=== PATIENT | male | born 1960 | race Two or more races ===

== ENCOUNTER 2019-01-20 05:36 | Inpatient (IN) | payer OTHER ==
[2019-01-20] VITALS (8 sets, daily range): BP systolic 122–151; BP diastolic 67–93
[~2019-01-20] VITALS: Ht 177.8 cm; Wt 113.4 kg
[2019-01-20] MEDS ORDERED: SCOPOLAMINE HBR 1 EA PATCH.TD72 TD ONE (06:13)
[2019-01-20] MEDS ORDERED: FENTANYL PF 100MCG/2ML AMPUL ONE ×2 (06:13→12:10)
[2019-01-20] MEDS ORDERED: MIDAZOLAM HCL 2 MG/2ML VIAL ONE (06:14)
[2019-01-20] MEDS ORDERED: MORPHINE SULFATE/PF 10 MG/10ML (1MG/ML) AMPUL ONE (06:14)
--- NOTE | 2019-01-20 07:00 | NUR ---
MS RN NOTE: RECEIVE PATIENT FROM HOME FOR DAY SURGERY OF LEFT TOTAL KNEE ARTHROPLASTY. CONSENTS SIGNED AND CHECKLIST COMPLETED. TRIED TO START IV X2 WITHOUT SUCCESS. BED LOCKED AND IN LOWEST POSITION, CALL LIGHT IN REACH. WILL ENDORSE TO DAY NURSE TO CONTINUE WITH PLAN OF CARE.
[2019-01-20] MEDS ORDERED: TAMS-12 PO (07:37)
[2019-01-20] MEDS ORDERED: ATOR10TA PO (07:37)
[2019-01-20] MEDS ORDERED: FINA5TAB4 PO (07:37)
[2019-01-20] MEDS ORDERED: GARL10004 PO (07:37)
[2019-01-20] MEDS ORDERED: TERA10CA4 PO (07:37)
--- NOTE | 2019-01-20 08:00 | NUR ---
RN OPENING NOTES PT AWAKE AND RESTING IN BED. INFORMED OR OF MULTIPLE IV ATTEMPTS. PT SCHEDULED FOR LEFT TOTAL KNEE ARTHROPLASTY BY DR MACK. SAFETY PRECAUTIONS IN PLACE, BED IN LOWEST LOCKED POSITION, X2 SIDE RAILS UP AND CALL LIGHT WITHIN REACH. WILL CONTINUE TO MONITOR.
[2019-01-20] MEDS ORDERED: GARLIC 1000 MG PO SCH (09:00)
--- NOTE | 2019-01-20 09:00 | NUR ---
RN NOTES PATIENT TAKEN BY BED TO SURGERY 0900.
[2019-01-20] MEDS ORDERED: BUPIVACAINE 0.5 % PF 150 MG/30 ML VIAL ONE (09:53)
[2019-01-20] MEDS ORDERED: BACITRACIN 50000 UNITS/VIAL ONE (09:53)
[2019-01-20] MEDS ORDERED: TRANEXAMIC ACID 3,000 MG in SODIUM CHLORIDE IRRIG SOLUTION 70 ML IR ONE (10:00)
[2019-01-20] MEDS ORDERED: HYDROMORPHONE INJ 2 MG/ML DISP.SYRIN ONE (11:31)
[2019-01-20] MEDS ORDERED: MORPHINE SULFATE INJ 4 MG/ML DISP.SYRIN ONE (11:58)
[2019-01-20] MEDS ORDERED: HYDROMORPHONE 1 MG/1 ML DISP.SYRIN ONE (12:20)
--- NOTE | 2019-01-20 12:30 | NUR ---
RN NOTES PATIENT BACK FROM SX, PT ON 4L O2 VIA NASAL CANNULA FOR SLEEP APNEA. VITAL SIGNS STABLE.
[2019-01-20] MEDS ORDERED: diphenhydrAMINE HCL 25 MG CAPSULE PO PRN (13:00)
[2019-01-20] MEDS ORDERED: IV D5/0.45 NACL 1,000 ML IV PRN (13:00)
[2019-01-20] MEDS ORDERED: oxyCODONE IR immediate release 5 MG PO PRN (13:00)
[2019-01-20] MEDS ORDERED: ZOLPIDEM TARTRATE 5 MG TABLET PO PRN (13:00)
[2019-01-20] MEDS ORDERED: CLONIDINE HCL 0.1 MG TABLET PO PRN (13:00)
[2019-01-20] MEDS ORDERED: MENTHOL MM PRN (13:00)
[2019-01-20] MEDS ORDERED: ONDANSETRON HCL/PF 4 MG/2 ML VIAL IVP PRN (13:00)
[2019-01-20] MEDS ORDERED: BISACODYL SUPP (10 MG) 10 MG/SUPP.RECT SUPP.RECT RC PRN (13:00)
[2019-01-20] MEDS ORDERED: NALOXONE HCL 0.4 MG/ML AMPUL IV PRN (13:00)
[2019-01-20] MEDS ORDERED: PHENOL MM PRN (13:00)
[2019-01-20] MEDS ORDERED: MORPHINE SULFATE INJ 2 MG/ML DISP.SYRIN IV PRN (13:00)
[2019-01-20] MEDS: FINASTERIDE (5 MG) 5 MG TABLET PO SCH (13:53)
[2019-01-20] MEDS: TAMSULOSIN 0.4 MG CAP.SR.24H PO SCH (13:53)
--- NOTE | 2019-01-20 14:00 | NUR ---
RN NOTES PT REFUSED PT EVALUATION TODAY.
[2019-01-20] MEDS: oxyCODONE IR immediate release 5 MG PO PRN ×3 (16:25→22:22)
[2019-01-20] MEDS: ANCEF 1 GM/50 ML D5W IV SCH ×2 (17:48)
[2019-01-20] MEDS: ATORVASTATIN 10 MG TABLET PO SCH (17:49)
[2019-01-20] MEDS: DOCUSATE SODIUM 100 MG CAPSULE PO SCH (17:49)
--- NOTE | 2019-01-20 18:47 | NUR ---
RN CLOSING NOTES PT AWAKE AND RESTING IN BED. PATIENT SAYS PAIN IS MANAGED BEST WITH OXY IR 10. PT HAS LEFT WRIST #22 IV INTACT AND RUNNING D51/2NS @125 ML/HR. PER POST OP ORDER DRESSING WILL ONLY BE CHANGED BY MD. SAFETY PRECAUTIONS IN PLACE, BED IN LOWEST LOCKED POSITION, X2 SIDE RAILS UP AND CALL LIGHT WITHIN REACH. WILL ENDORSE TO BELT MAKER HELPER NURSE FOR CONTINUITY OF CARE.
--- NOTE | 2019-01-20 19:40 | NUR ---
MS RN NOTE: PATIENT RESTING IN BED, NO ACUTE DISTRESS NOTED. BREATHING EVEN AND UNLABORED, NO SOB NOTED. IV TO LEFT WRIST IN PLACE, INFUSING D5 1/2NS AT 125ML/HR. DRESSING TO LEFT LEG IN PLACE, NO BLEEDING NOTED. BED LOCKED AND IN LOWEST POSITION, CALL LIGHT IN REACH. WILL CONTINUE TO MONITOR.
[2019-01-20] MEDS: TERAZOSIN HCL 5 MG CAPSULE PO SCH (21:19)
[2019-01-20] MEDS: FAMOTIDINE (20 MG) 20 MG TABLET PO SCH (21:19)
--- NOTE | 2019-01-20 22:30 | NUR ---
MS RN NOTE: PATIENT COMPLAINS OF PAIN TO LEFT KNEE, OXY IR 10MG ORAL GIVEN PER MD ORDER. WILL CONTINUE TO MONITOR.
--- NOTE | 2019-01-20 23:45 | NUR ---
MS RN NOTE: PATIENT SEEN BY DR. BLANCO FOR PAIN MANAGEMENT. MEDICATIONS ADJUSTED PER MD. WILL CONTINUE TO MONITOR.
[2019-01-21] MEDS: ANCEF 1 GM/50 ML D5W IV SCH ×2 (01:46)
[2019-01-21] MEDS: oxyCODONE IR immediate release 5 MG PO PRN ×6 (01:46→21:15)
--- NOTE | 2019-01-21 01:50 | NUR ---
MS RN NOTE: PATIENT COMPLAINS OF PAIN TO LEFT KNEE, OXY IR 10MG ORAL GIVEN PER MD ORDER. WILL CONTINUE TO MONITOR.
--- NOTE | 2019-01-21 06:05 | NUR ---
MS RN NOTE: PATIENT RESTING IN BED, NO ACUTE DISTRESS NOTED. BREATHING EVEN AND UNLABORED, NO SOB NOTED. IV TO LEFT WRIST IN PLACE. DRESSING TO LEFT LEG IN PLACE, NO BLEEDING NOTED. BED LOCKED AND IN LOWEST POSITION, CALL LIGHT IN REACH. WILL ENDORSE TO DAY NURSE TO CONTINUE WITH PLAN OF CARE.
[2019-01-21 06:07] LABS: BASOPHILS % (AUTO) 0.3 % (0.0-2.0); EOSINOPHILS % (AUTO) 0.2 % (0.0-6.0); HEMATOCRIT 44 % (39-51); HEMOGLOBIN 15.2 g/dL (13.5-17.5); LYMPHOCYTES # (AUTO) 0.7 /CMM (0.8-4.8); LYMPHOCYTES % (AUTO) 11.3 % (20.0-44.0); MEAN CORPUSCULAR HGB CONC 34 g/dl (31.0-36.0); MEAN CORPUSCULAR VOLUME 90 fL (80-96); MONOCYTES # (AUTO) 0.5 /CMM (0.1-1.30); MONOCYTES % (AUTO) 7.9 % (2.0-12.0); NEUTROPHILS % (AUTO) 80.3 % (43.0-81.0); PLATELET COUNT (AUTO) 52 /CMM (150-450); RED BLOOD CELL COUNT(AUTO) 4.94 MIL/uL (4.5-6.0); WHITE BLOOD COUNT (AUTO) 6.3 K/uL (4.3-11.0)
[2019-01-21 08:00] VITALS: BP 135/78
--- NOTE | 2019-01-21 08:00 | NUR ---
MS RN NOTE: PATIENT RESTING IN BED, NO ACUTE DISTRESS NOTED. BREATHING EVEN AND UNLABORED, NO SOB NOTED. IV H/L TO LEFT WRIST IN PLACE, S/P LT KNE TOTAL ARTHROPLASTY WITH DRESSING TO LEFT LEG IN PLACE CLEAN AND INTACT, NO BLEEDING NOTED. BED LOCKED AND IN LOWEST POSITION, CALL LIGHT IN REACH. WILL CONTINUE TO MONITOR.
[2019-01-21 08:01] LABS: LYMPHOCYTES % (MANUAL) 12 % (16-48); MONOCYTES % (MANUAL) 7 % (0-11.0); NEUTROPHILS % (MANUAL) 81 (42-76)
[2019-01-21] MEDS: ASPIRIN 325 MG TABLET PO SCH ×2 (08:41→16:35)
[2019-01-21] MEDS: DOCUSATE SODIUM 100 MG CAPSULE PO SCH ×2 (08:42→16:35)
[2019-01-21] MEDS: FINASTERIDE (5 MG) 5 MG TABLET PO SCH (08:42)
[2019-01-21] MEDS: FAMOTIDINE (20 MG) 20 MG TABLET PO SCH (08:42)
[2019-01-21] MEDS: TAMSULOSIN 0.4 MG CAP.SR.24H PO SCH (08:42)
[2019-01-21] MEDS: MORPHINE SULFATE INJ 2 MG/ML DISP.SYRIN IM/SC PRN (10:53)
--- NOTE | 2019-01-21 14:00 | NUR ---
PT REFUSED P.T. TX WANTING TO REST FOR AWHILE INSPITE OF EXPLAINING ITS RISKS AND BENEFITS.PAIN MGT GIVEN PRN ORDERED.HAS BEEN HESITANT TO USE MORPHINE IM. WILL TRY TOMORROW.
[2019-01-21 15:59] VITALS: BP 113/72
[2019-01-21] MEDS: ATORVASTATIN 10 MG TABLET PO SCH (17:10)
--- NOTE | 2019-01-21 18:00 | NUR ---
PT RESTING IN BED DENYING ANY PAIN OR DISTRESS.C/O CONSTIPATION.MOM GIVEN AND ENCOURAGED TO INCREASE FLUID INTAKE AND AMBULATE WITH P.T.CALL LIGHT PLACED WITHIN REACH.
[2019-01-21] MEDS: MAGNESIUM HYDROXIDE 30 ML UDC PO PRN (18:50)
--- NOTE | 2019-01-21 19:25 | NUR ---
MS/RN OPENING NOTES PT RECEIVED AWAKE, A/OX4. DAUGHTER AT BEDSIDE. ON ROOM AIR, BREATHING EVEN AND UNLABORED, IN NO ACUTE RESPIRATORY DISTRESS. DENIES SOB AT THIS TIME. WITH C/O PAIN TO LEFT KNEE 09/30 BUT WANTS TO HOLD OFF ON PAIN MEDS AT THIS TIME. C/O ABDOMINAL DISCOMFORT AND FEELS CONSTIPATED. ALREADY RECEIVED MILK OF MAG HOWEVER STATES HE HASNT HAD A BM FOR A FEW DAYS AND WOULD LIKE SOMETHING ELSE. WILL ADMINISTER [place] ORDERED. IV TO LEFT WRIST PATENT AND INTACT. HOB ELEVATED. BED IN LOW/LOCKED POSITION WITH CALL LIGHT IN REACH. BILAT. UPPER SIDE RAILS IN PLACE. LEFT LEG WRAPPED IN SIVAKUMAR BANDAGE AND SECURED. WILL CONTINUE TO MONITOR
[2019-01-21 20:00] VITALS: BP 136/77
[2019-01-21] MEDS: SENNOSIDES 8.6 MG TABLET PO PRN (20:34)
[2019-01-21] MEDS: TERAZOSIN HCL 5 MG CAPSULE PO SCH (21:14)
--- NOTE | 2019-01-21 21:20 | NUR ---
MS/RN NOTES PT C/O PAIN TO LEFT KNEE 09/30. ADMINISTERED PRN OXY IR 10MG ORDERED PER PAIN SCALE. WILL MONITOR FOR EFFECTIVENESS
[2019-01-22] MEDS: oxyCODONE IR immediate release 5 MG PO PRN ×4 (02:08→22:43)
--- NOTE | 2019-01-22 02:11 | NUR ---
MS/RN NOTES PT C/O PAIN 6/10 TO LEFT KNEE. ADMINISTERED PRN OXY IR 10MG ORDERED. WILL MONITOR FOR EFFECTIVENESS
--- NOTE | 2019-01-22 06:34 | NUR ---
MS/RN CLOSING NOTES PT ASLEEP, RESPONSIVE TO NAME. A/OX3. ON ROOM AIR, BREATHING EVEN AND UNLABORED. DENIES SOB. RECENTLY RECEIVED PAIN MEDS. ENCOURAGED INCENTIVE SPIROMETER USE WHILE AWAKE. IV TO LEFT WRIST PATENT AND INTACT. DRESSING TO LLE C/D/I. NO NEEDS EXPRESSED AT THIS TIME. BED IN LOW/LOCKED POSITION WITH CALL LIGHT IN REACH. BILAT. UPPER SIDE RAILS IN PLACE. HOB ELEVATED. WILL ENDORSE TO DAY SHIFT RN JENELLE.
[2019-01-22 07:05] LABS: BASOPHILS % (AUTO) 0.5 % (0.0-2.0); EOSINOPHILS % (AUTO) 0.6 % (0.0-6.0); HEMATOCRIT 43 % (39-51); HEMOGLOBIN 14.5 g/dL (13.5-17.5); LYMPHOCYTES # (AUTO) 0.6 /CMM (0.8-4.8); MEAN CORPUSCULAR HGB CONC 34 g/dl (31.0-36.0); MEAN CORPUSCULAR VOLUME 90 fL (80-96); MONOCYTES # (AUTO) 0.6 /CMM (0.1-1.30); MONOCYTES % (AUTO) 11.3 % (2.0-12.0); NEUTROPHILS # (AUTO) 4.2 /CMM (1.8-8.9); NEUTROPHILS % (AUTO) 76.6 % (43.0-81.0); RED BLOOD CELL COUNT(AUTO) 4.72 MIL/uL (4.5-6.0); WHITE BLOOD COUNT (AUTO) 5.5 K/uL (4.3-11.0)
[2019-01-22 07:47] LABS: PLATELET COUNT (AUTO) 44 /CMM (150-450)
[2019-01-22 08:00] VITALS: BP 132/82
--- NOTE | 2019-01-22 08:00 | NUR ---
MS RN NOTE: PATIENT RESTING IN BED, NO ACUTE DISTRESS NOTED. BREATHING EVEN AND UNLABORED, NO SOB NOTED. IV H/L TO LEFT WRIST IN PLACE, S/P LT KNEE TOTAL ARTHROPLASTY WITH DRESSING TO LEFT LEG IN PLACE CLEAN AND INTACT, NO BLEEDING NOTED. PAIN MGT GIVEN NEEDED.ENCOURAGED TO AMBULATE WITH P.T. THIS MORNING TO RESOLVE HIS CONSTIPATION ISSUE WELL.BED LOCKED AND IN LOWEST POSITION, CALL LIGHT WITHIN REACH. WILL CONTINUE TO MONITOR.
[2019-01-22 08:05] LABS: CALCIUM, SERUM 8.7 mg/dL (8.5-10.1); CREATININE 0.9 mg/dL (0.6-1.3); POTASSIUM 4.2 mmol/L (3.5-5.1)
[2019-01-22 08:18] LABS: BAND % (MANUAL) 2 % (0.0-5.0); EOSINOPHILS % (MANUAL) 1 % (0-4); LYMPHOCYTES % (MANUAL) 15 % (16-48); MONOCYTES % (MANUAL) 10 % (0-11.0); NEUTROPHILS % (MANUAL) 72 (42-76)
[2019-01-22] MEDS: FINASTERIDE (5 MG) 5 MG TABLET PO SCH (08:47)
[2019-01-22] MEDS: TAMSULOSIN 0.4 MG CAP.SR.24H PO SCH (08:48)
[2019-01-22] MEDS: MAGNESIUM HYDROXIDE 30 ML UDC PO PRN (08:48)
[2019-01-22] MEDS: DOCUSATE SODIUM 100 MG CAPSULE PO SCH ×2 (08:48→17:45)
[2019-01-22] MEDS: ASPIRIN 325 MG TABLET PO SCH ×2 (08:48→17:45)
--- NOTE | 2019-01-22 09:30 | NUR ---
SEEN BY P.T. BUT PT REFUSED TO AMBULATE NOR STAND WITH AND JUST SAT ON THE EDGE OF THE BED. PT NOTES-RN Jazzy cleared pt prior to PT tx. Pt was found in semi-aguilar position. Instructed on scooting and bridging techniques to decrease assistance transferring from supine to EOB. Multiple attempts taken during sit to stand transfer; however, unable even with manual assistance given. Instructed on AAROM exercise of LLE while sitting on EOB to improve ROM and strength. Pt was left sitting on EOB and endorsed to DIRECTOR DESIGN and RN post tx. Held CPM due to pt c/o knee pain at rest.
--- NOTE | 2019-01-22 10:16 | NUR ---
SALON CUSTOMER EXPERIENCE SPECIALIST DILAUDID DC'D WITH 10.5 ML REMAINING WASTED WITNESSED BY FEDERICO ARREGUIN. Addendum: 01/22/19 at 1125 by MAICOL JENNINGS RN PLS IGNORE ABOVE NOTES-DOCUMENTED ON THE WRONG PT
--- NOTE | 2019-01-22 12:20 | NUR ---
PT LYING IN BED WITH HOB ELEVATED USING INCENTIVE SPIROMETER WHILE AWAKE.DENIES PAIN AT THIS TIME AND REFUSED TO USE MORPHINE PRN WELL.WILL MONITOR.
[2019-01-22] MEDS: SENNOSIDES 8.6 MG TABLET PO PRN (15:00)
[2019-01-22 16:00] VITALS: BP 119/76
[2019-01-22] MEDS: ATORVASTATIN 10 MG TABLET PO SCH (17:45)
--- NOTE | 2019-01-22 18:42 | NUR ---
PT WAS SEEN BY CHRISSY CLMEONS AND CHANGED PT'S DRESSING WITH CLEARANCE FOR DISCHARGE. PT RESTING IN BED DENYING ANY PAIN OR DISTRESS.WATCHING TV NEWS.CALL LIGHT PLACED WITHIN REACH.
--- NOTE | 2019-01-22 19:15 | NUR ---
MS RN NOTES RECEIVED PT IN BED AWAKE AND ABLE TO MAKE NEEDS KNOWN. PT A/O X3. RESPIRATIONS EVEN AND UNLABORED WITH NO S/S OF ACUTE DISTRESS OR SOB NOTED. NO COMPLAINTS OF PAIN AT THIS TIME. PT WITH LWRIST #22G PATENT AND INTACT AND SL. SAFETY MEASURES IN PLACE WITH BED IN LOWEST LOCKED POSITION WITH SIDE RAILS UP X2. CALL LIGHT WITHIN REACH. WILL CONTINUE TO MONITOR.
[2019-01-22] MEDS ORDERED: MINERAL OIL 133 ML (PYXIS) 1 EA ENEMA RC PRN (19:30)
[2019-01-22 20:00] VITALS: BP 115/75
[2019-01-22] MEDS: TERAZOSIN HCL 5 MG CAPSULE PO SCH (21:19)
[2019-01-22] MEDS: MORPHINE SULFATE INJ 2 MG/ML DISP.SYRIN IM/SC PRN (22:21)
--- NOTE | 2019-01-22 22:44 | NUR ---
MS RN NOTES PT CHANGED MIND ABOUT PAIN MEDICATION OF MORPHINE AFTER MEDICATION WAS DRAWN UP, MEDICATION WASTED. PT PREFERRED TO GET PO PAIN MEDICATION, OXYCODONE GIVEN.
--- NOTE | 2019-01-23 02:35 | NUR ---
MS RN NOTES PT TO BE GIVEN ENEMA, PT REFUSED AT THIS TIME. PT STATED THAT HE WANTED TO GET SUPPOSITORY FIRST AND IF IT DOES NOT WORK TO GET AN ENEMA IN THE MORNING. WILL CONTINUE TO MONITOR.
--- NOTE | 2019-01-23 07:54 | NUR ---
MS RN NOTES PT IN BED AWAKE AND ABLE TO MAKE NEEDS KNOWN. PT A/O X3. RESPIRATIONS EVEN AND UNLABORED WITH NO S/S OF ACUTE DISTRESS OR SOB NOTED THROUGHOUT SHIFT. PT KEPT CLEAN, DRY, AND COMFORTABLE. NO COMPLAINTS OF PAIN AT THIS TIME. PT WITH LWRIST #22G PATENT AND INTACT AND SL. SAFETY MEASURES IN PLACE WITH BED IN LOWEST LOCKED POSITION WITH SIDE RAILS UP X2. CALL LIGHT WITHIN REACH. WILL ENDORSE TO ONCOMING NURSE FOR JENELLE.
[2019-01-23 08:00] VITALS: BP 114/75
--- NOTE | 2019-01-23 08:00 | NUR ---
MS RN NOTES PT IN BED AWAKE AND ABLE TO MAKE NEEDS KNOWN. PT A/O X3. RESPIRATIONS EVEN AND UNLABORED WITH NO S/S OF ACUTE DISTRESS OR SOB NOTED. PT KEPT CLEAN, DRY, AND COMFORTABLE. NO COMPLAINTS OF PAIN AT THIS TIME. PT WITH LWRIST #22G PATENT AND INTACT AND SL. SAFETY MEASURES IN PLACE WITH BED IN LOWEST LOCKED POSITION WITH SIDE RAILS UP X2. CALL LIGHT WITHIN REACH.
[2019-01-23] MEDS: MAGNESIUM HYDROXIDE 30 ML UDC PO PRN (08:21)
[2019-01-23] MEDS: FINASTERIDE (5 MG) 5 MG TABLET PO SCH (08:21)
[2019-01-23] MEDS: oxyCODONE IR immediate release 5 MG PO PRN ×2 (08:21→13:39)
[2019-01-23] MEDS: ASPIRIN 325 MG TABLET PO SCH (08:21)
[2019-01-23] MEDS: TAMSULOSIN 0.4 MG CAP.SR.24H PO SCH (08:21)
[2019-01-23] MEDS: DOCUSATE SODIUM 100 MG CAPSULE PO SCH (08:21)
[2019-01-23] MEDS ORDERED: ASPI-992 PO (11:20)
[2019-01-23] MEDS ORDERED: SENN-168 PO (11:20)
--- NOTE | 2019-01-23 14:50 | NUR ---
DISCHARGED PT HOME WITH HOME HEALTH -[facility] . ARRANGED BY SKINNY HERRERA(COORDINATOR)OF WORKERS COMP EXT 14613. DISCHARGED WITH STABLE V/S.IV H/L REMOVED TO LT WRIST WITH NO BLEEDING NOTED.PT DENIES ANY PAIN OR DISTRESS.ACCOMPANIED BY PT'S DAUGHTER,SHERI.
== END 2019-01-23 15:25 | disposition home health service (06) | DRG 470 ==
LOC: DS 05:36 → EDSEX 05:37 → MED 05:37
PROVIDERS: ADMIT Internal Medicine; ATTEND Nurse Practitioner Acute Care
PROC: 0SRD0J9 Replacement of Left Knee Joint with Synthetic Substitute, Cemented, Open Approach (ICD-10-PCS; principal; 2019-01-20)
DX: M17.12 Unilateral primary osteoarthritis, left knee (principal); E78.5 Hyperlipidemia, unspecified; E66.9 Obesity, unspecified; N40.0 Benign prostatic hyperplasia without lower urinary tract symptoms; Z68.35 Body mass index [BMI] 35.0-35.9, adult; D69.6 Thrombocytopenia, unspecified; G89.29 Other chronic pain; G47.33 Obstructive sleep apnea (adult) (pediatric); Z87.891 Personal history of nicotine dependence
CPT/HCPCS: 36415; 80048-TC; 82962-TC; 85025-TC; 86850-TC; 87081-TC; 88305-TC; 88311-TC; 97110-TC; 97112-TC; 97116-TC; 97530-TC; 97760-TC; A4217; C1713; G0378; J0690; J1100; J1170; J2250; J2270; J2274; J2704; J3010; J3490; J7060